=== PATIENT | female | born 1980 | race Two or more races ===

== ENCOUNTER 2020-05-09 20:17 | Observation (INO) | payer OTHER ==
[2020-05-09] MEDS ORDERED: SODIUM CHLORIDE 0.9% 1,000 ML IV STA (20:43)
[2020-05-09] MEDS ORDERED: KETOROLAC 30 MG/ML 1 ML VIAL IVP STA (20:43)
[2020-05-09] MEDS ORDERED: LORazepam 2 MG/ML INJ IV STA (20:44)
[2020-05-09 20:57] LABS: Basophils # (A) 0.1 k/uL (0-0.2); Basophils % (A) 1 %; Eosinophils # (A) 0.2 k/uL (0-0.7); Eosinophils % (A) 2 %; HCT 38.2 % (34.0-46.0); HGB 12.5 gm/dL (11.4-16.0); Lymphocytes # (A) 3.3 k/uL (1.0-4.8); Lymphocytes % (A) 29 %; MCH 27.9 pg (25.0-35.0); MCHC 32.7 g/dL (31.0-37.0); MCV 85.3 fL (80.0-100.0); Mean Platelet Volume 7.2; Monocytes # (A) 0.4 k/uL (0-1.0); Monocytes % (A) 4 %; Neutrophils # (A) 6.8 k/uL (1.3-7.7); Neutrophils % (A) 61 %; Platelet Count 292 k/uL (150-450); RBC 4.48 m/uL (3.80-5.40); RDW 13.1 % (11.5-15.5); WBC 11.1 k/uL (3.8-10.6)
--- NOTE | 2020-05-09 21:05 | XR ---
EXAMINATION TYPE: XR chest 2V DATE OF EXAM: 05/09/2020 COMPARISON: NONE HISTORY: Chest pain TECHNIQUE: 2 views FINDINGS: Heart and mediastinum are normal. Lungs are clear. Diaphragm is normal. Bony thorax appears normal. There are chest leads. IMPRESSION: Normal chest.
[2020-05-09 21:07] LABS: ALT 25 U/L (4-34); AST 24 U/L (14-36); African American GFR (CKD) >90 (>60 ml/min/1.73 sqM); Albumin 4.3 g/dL (3.5-5.0); Alkaline Phosphatase 60 U/L (38-126); Anion Gap 9 mmol/L; Blood Urea Nitrogen 14 mg/dL (7-17); Calcium 9.8 mg/dL (8.4-10.2); Carbon Dioxide 21 mmol/L (22-30); Chloride 105 mmol/L (98-107); Glucose 96 mg/dL (74-99); Magnesium 1.9 mg/dL (1.6-2.3); Non-African American GFR(CKD) >90 (>60 ml/min/1.73 sqM); Potassium 4.1 mmol/L (3.5-5.1); Sodium 135 mmol/L (137-145); Total Bilirubin 0.3 mg/dL (0.2-1.3); Total Protein 7.6 g/dL (6.3-8.2)
[2020-05-09 21:10] LABS: D-Dimer 0.39 mg/L FEU (<0.60); INR 0.9 (<1.2); Partial Thromboplastin Time 23.5 sec (22.0-30.0); Prothrombin Time 9.5 sec (9.0-12.0)
--- NOTE | 2020-05-09 21:21 | ED ---
Chest Pain HPI - General Chief Complaint: Chest Pain Stated Complaint: Chest Pains Time Seen by Provider: 05/09/20 20:30 Source: patient Mode of arrival: wheelchair Limitations: no limitations - History of Present Illness Initial Comments: Patient is a 39-year-old female presenting to the emergency Department with complaints of left-sided chest tightness and pressure with some radiation into her left shoulder that started approximately 1 hour prior to arrival. Patient states that she feels like she is slightly short of breath secondary to the tightness. She states she did take a baby aspirin. She states this happened approximately 1-2 weeks ago but only lasted a few seconds. She denies any trauma or falls. She denies history of any heart disease. She takes no medications. Patient states she does have a history of mild anxiety but does not take any medications for it. She denies a family history of heart disease. She denies any nausea, vomiting, abdominal pain, headache. She denies being this time. Patient does admit to increase in stress the past 1-2 weeks in addition to COVID stress. Of note, patient did his mention that her of a massive heart attack at the age of 42 a few years ago. She has no further complaints at this time. Upon arrival to the ER, her vital signs are stable. - Related Data Home Medications Medication Instructions Recorded Confirmed Ascorbic Acid [Vitamin C] 500 mg PO DAILY 05/09/20 05/09/20 Turmeric Chewable (Unknown 1 tab PO DAILY 05/09/20 05/09/20 Strength) Allergies Allergy/AdvReac Type Severity Reaction Status Date / Time No Known Allergies Allergy Verified 05/09/20 22:03 Review of Systems ROS Statement: Those systems with pertinent positive or pertinent negative responses have been documented in the HPI. ROS Other: All systems not noted in ROS Statement are negative. EKG Findings - EKG Comments: EKG Findings:: Sinus rhythm with premature supraventricular complexes, possible left atrial large meant, no signs of acute ischemia Past Medical History Past Medical History: No Reported History History of Any Multi-Drug Resistant Organisms: None Reported Past Surgical History: Section Past Psychological History: No Psychological Hx Reported Smoking Status: Former smoker Past Alcohol Use History: Occasional Past Drug Use History: None Reported General Exam - General Exam Comments Initial Comments: GENERAL: Patient is well-developed and well-nourished. Patient is nontoxic, appears anxious. HEAD: Atraumatic, normocephalic. EYES: Pupils equal round and reactive to light, extraocular movements intact, sclera anicteric, conjunctiva are normal. Eyelids were unremarkable. ENT: TMs normal, nares patent, oropharynx clear without exudates. Moist mucous membranes. NECK: Normal range of motion, supple without lymphadenopathy or JVD. LUNGS: Unlabored respirations. Breath sounds clear to auscultation bilaterally and equal. No wheezes rales or rhonchi. HEART: Regular rate and rhythm without murmurs, rubs or gallops. ABDOMEN: Soft, nontender, normoactive bowel sounds. No guarding, no rebound. No masses appreciated. : Deferred MUSCULOSKELETAL: Normal extremities with adequate strength and normal range of motion, no pitting or edema. No clubbing or cyanosis. NEUROLOGICAL: Patient is alert and oriented x 3. Normal speech, normal gait. PSYCH: Normal mood, normal affect. SKIN: Warm, Dry, normal turgor, no rashes or lesions noted. Limitations: no limitations Course Vital Signs 05/09/20 05/09/20 20:26 21:30 Temperature 98.1 F Pulse Rate 78 79 Respiratory 20 18 Rate Blood Pressure 119/82 106/65 O2 Sat by Pulse 98 97 Oximetry Chest Pain [facility] Patient is a 39-year-old female presenting for left-sided chest pain, tightness one hour prior to arrival. Her vital signs are stable. EKG shows no acute abnormality. Lab work is unremarkable, troponin is normal, d-dimer is negative. Patient was given some Toradol, Ativan and does report some improvement in her symptoms. She states she still feels some mild chest tightness. I do feel like this could be anxiety, panic attack, we did discuss options of being discharged home or being admitted and patient wishes to be admitted. We will consult cardiology, serial trops. Dr. Maurice is accepting. Patient is in agreement with this plan of care. Case discussed with Dr. Bella. Disposition Clinical Impression: Chest pain Disposition: ADMITTED IP TO THIS [facility] Condition: Stable Is patient prescribed a controlled substance at d/c from ED?: No Referrals: Eloy Hernandez MD [Primary Care Provider] - 1-2 days Decision Date: 05/09/20 Decision Time: 22:20
[2020-05-09] MEDS ORDERED: NITROGLYCERIN SL TABS 0.4 MG TAB SUBLINGUAL PRN (22:14)
[2020-05-10 03:02] LABS: Cholesterol 184 mg/dL (<200); HDL Cholesterol 40 mg/dL (40-60); LDL Cholesterol,Calculated 109 mg/dL (0-99); Triglycerides 175 mg/dL (<150)
[2020-05-10 03:25] VITALS: TEMP 98
[2020-05-10 07:49] VITALS: BP 98/61; PULSE 71; RESP 16
[2020-05-10] MEDS ORDERED: ASPIRIN 325 MG TAB PO SCH (09:00)
--- NOTE | 2020-05-10 10:02 | P.PN ---
Progress Note - Text 39-year-old female admitted with a stabbing discomfort in the chest off and on after she fainted the garage No risk factors of diabetes hypertension No family history of premature coronary artery disease Normal EKG Normal cardiac enzymes She has stopped smoking now Normal d-dimer Patient is very anxious and is under family related stress Suggest consider exercise stress testing to maximum capacity However 2 serial ECGs and 2 serial troponins in the emergency room, 3 hours apart, followed by discharge from the ER itself without admission Followed by outpatient reevaluation would have been appropriate management too, in this circumstance Please see full dictation by nurse practitioner
--- NOTE | 2020-05-10 10:35 | P.CRDCN ---
History of Present Illness History of present illness: HISTORY OF PRESENTING ILLNESS This is a pleasant 39-year-old female past medical history significant for former nicotine dependence. She denies prior history of coronary artery di sease and does not follow a major gifts officer for any reason. We have been asked to see in consultation for chest pain. 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 It happened approximately 10 times over the course of an hour and a half. She tried adjusting her arm and walking around to see if the symptoms would subside however it persisted. On arrival to the hospital her symptoms had completely subsided. She has had no further symptoms of chest discomfort since arriving at the hospital. EKG is unremarkable. Chest x-ray is negative for an acute cardiopulmonary process. Laboratory data reviewed, WBC 11.1, hemoglobin 12.5, d-dimer 0.39, sodium 135, potassium 4.1, creatinine 0.5, magnesium 1.9, cardiac enzymes negative 3, LDL 109 and HDL 40. She takes no daily cardiac medications. REVIEW OF SYSTEMS At the time of my exam: CONSTITUTIONAL: Denies fever or chills. CARDIOVASCULAR: Denies chest pain, shortness of breath, orthopnea, PND or palpitations. RESPIRATORY: Denies cough. GASTROINTESTINAL: Denies abdominal pain, diarrhea, constipation, nausea or vomiting. MUSCULOSKELETAL: Denies myalgias. NEUROLOGIC: Denies numbness, tingling or weakness. ENDOCRINE: Denies fatigue, weight change, polydipsia or polyurina. GENITOURINARY: Denies burning, hematuria or urgency with micturation. HEMATOLOGIC: Denies history of anemia or bleeding. PHYSICAL EXAMINATION Blood pressure 98/61 heart rate 71 afebrile and maintaining oxygen saturation on room air. CONSTITUTIONAL: No apparent distress. HEENT: Head is normocephalic. Pupils are equal, round. Sclerae anicteric. Mucous membranes of the mouth are moist. No JVD. No carotid bruit. CHEST EXAMINATION: Lungs are clear to auscultation. No chest wall tenderness is noted on palpation or with deep breathing. HEART EXAMINATION: Regular rate and rhythm. S1, S2 heard. No murmurs, gallops or rub. ABDOMEN: Soft, nontender. Positive bowel sounds. EXTREMITIES: 2+ peripheral pulses, no lower extremity edema and no calf tende rness. NEUROLOGIC EXAMINATION: Patient is awake, alert and oriented x3. ASSESSMENT Chest pain, atypical for angina. An acute coronary event has been ruled out. Leukocytosis Dyslipidemia Former nicotine dependence PLAN An acute coronary event has been ruled out. Pain is atypical for angina likely related to musculoskeletal strain. Discussed with the patient undergoing stress testing as she is quite distressed and anxious since she lost her to a heart attack in his 40s. Lifestyle modifications for lowering LDL cholesterol to less then 100. Thank you, for this consultation. Nurse Practitioner note has been reviewed, I agree with a documented findings and plan of care. Patient was seen and examined. Past Medical History Past Medical History: No Reported History History of Any Multi-Drug Resistant Organisms: None Reported Past Surgical History: Section Past Anesthesia/Blood Transfusion Reactions: No Reported Reaction Past Psychological History: No Psychological Hx Reported Smoking Status: Former smoker Past Alcohol Use History: Occasional Past Drug Use History: None Reported Medications and Allergies Home Medications Medication Instructions Recorded Confirmed Type Ascorbic Acid [Vitamin C] 500 mg PO DAILY 05/09/20 05/09/20 History Turmeric Chewable (Unknown 1 tab PO DAILY 05/09/20 05/09/20 History Strength) Allergies Allergy/AdvReac Type Severity Reaction Status Date / Time No Known Allergies Allergy Verified 05/09/20 22:03 Physical Exam Vitals: Vital Signs Temp Pulse Pulse Resp BP BP Pulse Ox 05/10/20 07:48 98.0 F 71 16 98/61 98 05/10/20 03:00 98.0 F 72 18 93/60 96 05/09/20 23:09 97.8 F 70 18 91/54 97 05/09/20 22:35 98.1 F 73 18 104/68 98 05/09/20 22:14 97 05/09/20 21:30 79 18 106/65 97 05/09/20 20:26 98.1 F 78 20 119/82 98 Intake and Output 05/09/20 05/10/20 05/10/20 22:59 06:59 14:59 Other: Voiding Method Toilet Weight 65.952 kg 65.952 kg Results 05/09/20 20:46 05/09/20 20:46 Cardiac Enzymes 05/09/20 05/09/20 05/09/20 Range/Units 20:46 20:46 22:59 AST 24 (14-36) U/L Troponin I <0.012 <0.012 (0.000-0.034) ng/mL 05/10/20 Range/Units 02:22 AST (14-36) U/L Troponin I <0.012 (0.000-0.034) ng/mL Coagulation 05/09/20 Range/Units 20:46 PT 9.5 (9.0-12.0) sec APTT 23.5 (22.0-30.0) sec Lipids 05/10/20 Range/Units 02:22 Triglycerides 175 H (<150) mg/dL Cholesterol 184 (<200) mg/dL HDL Cholesterol 40 (40-60) mg/dL CBC 05/09/20 Range/Units 20:46 WBC 11.1 H (3.8-10.6) k/uL RBC 4.48 (3.80-5.40) m/uL Hgb 12.5 (11.4-16.0) gm/dL Hct 38.2 (34.0-46.0) % Plt Count 292 (150-450) k/uL Comprehensive Metabolic Panel 05/09/20 Range/Units 20:46 Sodium 135 L (137-145) mmol/L Potassium 4.1 (3.5-5.1) mmol/L Chloride 105 (98-107) mmol/L Carbon Dioxide 21 L (22-30) mmol/L BUN 14 (7-17) mg/dL Creatinine 0.58 (0.52-1.04) mg/dL Glucose 96 (74-99) mg/dL Calcium 9.8 (8.4-10.2) mg/dL AST 24 (14-36) U/L ALT 25 (4-34) U/L Alkaline Phosphatase 60 (38-126) U/L Total Protein 7.6 (6.3-8.2) g/dL Albumin 4.3 (3.5-5.0) g/dL Current Medications Generic Name Dose Route Start Last Admin Trade Name Freq PRN Reason Stop Dose Admin Aspirin 325 mg 05/10/20 09:00 Aspirin PO DAILY JOSE M Nitroglycerin 0.4 mg 05/09/20 22:14 Nitrostat SUBLINGUAL Q5M PRN Chest Pain Intake and Output 05/09/20 05/10/20 05/10/20 22:59 06:59 14:59 Other: Voiding Method Toilet Weight 65.952 kg 65.952 kg 05/09/20 20:46 05/09/20 20:46
--- NOTE | 2020-05-10 13:21 | EST ---
EXERCISE STRESS AGE: 39 SEX: F HT: 62" WT: 145 PROTOCOL: [place]rett STAGE: 4 DURATION OF EXERCISE: 10:00 HEART RATE REST: 82 BLOOD PRESSURE REST: 103/69 MAXIMUM HEART RATE ACHIEVED: 168 MAXIMUM BLOOD PRESSURE: 153/54 85% MPHR: 154 100% MPHR: 181 METS: 11.7 INDICATIONS: Chest pain. CLINICAL INFORMATION: A 39-year-old female presenting with chest discomfort. Baseline heart rate 82 beats per minute. Baseline blood pressure 103/69 mmHg. Baseline 12-lead ECG shows sinus rhythm with early repolarization abnormality. Patient exercised on a Everett protocol for 10 minutes, within 2 minutes she started experiencing chest discomfort which lasted for the test. Baseline artifact was noted with increasing exercise. She was not short of breath. She was not uncomfortable during the stress test. Peak exercise ECG was normal at recovery. ECG was normal. No arrhythmias noted. IMPRESSION: 1. No ECG evidence for ischemia. 2. Excellent exercise capacity. 3. Patient experienced chest discomfort throughout the test. MMODL / IJN: [id number] /
--- NOTE | 2020-05-10 17:03 | HP ---
HISTORY AND PHYSICAL COMBINATION HISTORY AND PHYSICAL AND DISCHARGE SUMMARY: CHIEF COMPLAINT: Chest pain. HISTORY OF PRESENT ILLNESS: This 39-year-old woman with a past medical history of section and otherwise no other medical issues, being followed by as an outpatient, was complaining of chest pain. The pain started in the anterior part of the chest which was tightness and radiated to the left shoulder and also left neck. The patient was slightly short of breath and the patient came to [facility] and was admitted for further evaluation and treatment. There is no history of any fever, rigor or chills. No history of headache, loss of consciousness, seizures. The patient had a stress test which was reported negative at this time. PAST MEDICAL HISTORY: section. No other cardiorespiratory symptoms. MEDICATIONS: Turmeric daily, vitamin C 500 mg daily, Tylenol p.r.n. ALLERGIES: NONE. FAMILY HISTORY: No history of heart disease or strokes in the family. SOCIAL HISTORY: Previous history of smoking. No current smoking or alcohol intake. REVIEW OF SYSTEMS: ENT: No diminished hearing. No diminished vision. CARDIOVASCULAR SYSTEM: As mentioned earlier. RESPIRATORY SYSTEM: As mentioned earlier. GI: No nausea, vomiting. : No dysuria or retention. NERVOUS SYSTEM: No numbness, weakness. ALLERGY/IMMUNOLOGY: No asthma, hayfever. MUSCULOSKELETAL: As mentioned earlier. HEMATOLOGY/ONCOLOGY: No history of anemia. ENDOCRINE: No history of diabetes, hypothyroidism. CONSTITUTIONAL: As mentioned earlier. DERMATOLOGY: Negative. RHEUMATOLOGY: Negative. PSYCHIATRY: As mentioned earlier. PHYSICAL EXAMINATION: Patient alert and oriented x3. Pulse is 71, blood pressure 98/61, respirations 16, temperature 98 degrees, pulse ox 98% on room air. HEENT: Conjunctivae normal. Oral mucosa moist. NECK: No jugular venous distention. No carotid bruit. No lymph node enlargement. CARDIOVASCULAR SYSTEM: S1, S2 muffled. RESPIRATORY SYSTEM: Breath sounds diminished at the bases. No rhonchi. No crackles. ABDOMEN: Soft, non-tender. No mass palpable. LEGS: No edema. No swelling. NERVOUS SYSTEM: Higher functions as mentioned earlier. Moves all 4 limbs. No focal motor or sensory deficit. LYMPHATICS: No lymph node palpable in neck, axillae or groin. SKIN: No ulcer, rash, bleeding. JOINTS: No active deforming arthropathy. LABS: WBC 11.1, sodium 135 and triglycerides 175. LDL ASSESSMENT: 1. Chest pain. Myocardial infarction ruled out. Negative stress test. Possibly musculoskeletal pain. 2. Mild hyponatremia. 3. Mild hyperlipidemia. 4. Increased white count. 5. History of section. RECOMMENDATIONS AND DISCUSSION: In this 39-year-old woman who presented with chest pain, myocardial infarction was ruled out. Stress test was negative. At this time patient has improved significantly. Patient's cholesterol is slightly high. I would recommend cardiac diet and repeat cholesterol with in the outpatient setting. DISCHARGE MEDICATIONS: 1. Diet is cardiac, low-fat, low-cholesterol. 2. Activity limited until followup. 3. Follow up with in 2-3 days. 4. Follow up with Cardiology as recommended. 5. Tylenol p.r.n. 6. Vitamin C 500 mg daily. 7. Turmeric as before. MMIVETTEL / IJN: [id number] / MTDD
== END 2020-05-10 13:16 ==
LOC: EC 20:17 → 3NCARDOBS 22:15
PROVIDERS: ADMIT Internal Medicine; ATTEND Internal Medicine
DX: R07.89 Other chest pain (principal); R06.02 Shortness of breath; E87.1 Hypo-osmolality and hyponatremia; D72.829 Elevated white blood cell count, unspecified; E78.00 Pure hypercholesterolemia, unspecified; E78.5 Hyperlipidemia, unspecified; F41.9 Anxiety disorder, unspecified; I49.1 Atrial premature depolarization; F43.8 Other reactions to severe stress; Z03.818 Encounter for observation for suspected exposure to other biological agents ruled out; Z98.890 Other specified postprocedural states; Z87.891 Personal history of nicotine dependence; Z79.899 Other long term (current) drug therapy
CPT/HCPCS: 93005 ×2; 96361; 96374; 96375; 99285; 36415; 93017; 85379; 80061; 80053; 83735; 84484 ×2; 85025; 85610; 85730; 71046; G0378 ×2; U0003; J2060; J1885